=== PATIENT | male | born 1955 | race Caucasian/White ===

== ENCOUNTER 2016-10-11 04:40 | Inpatient (IN) ==
[2016-10-06 17:23] LABS: Basophils # (Auto) 0 K/mcL (0.0-0.3); Basophils % (Auto) 0.5 % (0.0-2.0); Eosinophils # (Auto) 0.2 K/mcL (0.0-0.7); Granulocytes % (Auto) 66.4 % (38.0-78.0); Lymphocytes # (Auto) 2.1 K/mcL (1.5-4.8); Lymphocytes % (Auto) 22.8 % (15.5-49.0); Mean Corpuscular Hemoglobin 33.6 pg (26.0-34.0); Monocytes # (Auto) 0.8 K/mcL (0.1-0.9); Monocytes % (Auto) 8.3 % (1.0-9.0); Platelet Count 254 K/mcL (140-440); RBC 4.29 M/mcL (4.50-5.90); Red Cell Distribution Width 12.7 % (11.5-14.5)
[2016-10-06 17:31] LABS: Blood Urea Nitrogen 21 mg/dl (6-20)
[2016-10-06 18:46] LABS: Appearance,Urine CLEAR; Bilirubin,Urine NEG (NEG); Color,Urine YELLOW; Glucose,Urine (UA) NEGATIVE (NEG); Leukocyte Esterase,Urine NEG /uL (NEG); Nitrate,Urine NEG (NEG); Protein,Urine NEG (NEG); Specific Gravity,Urine 1.018 (1.000-1.035); Urine Blood NEG mg/dL (<0.03); Urobilinogen,Urine NEG (NEG)
[2016-10-11] MEDS ORDERED: PREGABALIN 150 MG CAPSULE PO SCH (06:00)
[2016-10-11] MEDS ORDERED: CLINDAMYCIN 900 MG in DEXTROSE 5% IN WATER 50 ML IV SCH (06:00)
[2016-10-11] MEDS ORDERED: oxyCODONE 10 MG TAB.ER.12H PO SCH (06:00)
[2016-10-11] MEDS ORDERED: KETOROLAC 30 MG, ROPIVACAINE HCL/PF 49.5 ML, EPINEPHrine 0.5 MG, 0.9 % SODIUM CHLORIDE ... IJ ONE (06:00)
[2016-10-11] MEDS ORDERED: CELECOXIB 200 MG CAPSULE PO SCH (06:00)
[2016-10-11] MEDS ORDERED: GENTAMICIN SULFATE 800 MG/20 ML VIAL IR ONE (06:51)
[2016-10-11] MEDS ORDERED: MIDAZOLAM 5 MG/5 ML VIAL ONE (07:23)
[2016-10-11] MEDS ORDERED: PHENYLEPHRINE 10 MG/ML VIAL ONE (07:23)
[2016-10-11] MEDS ORDERED: ePHEDrine 50 MG/ML AMPUL IV ONE (07:23)
[2016-10-11] MEDS ORDERED: ONDANSETRON 4 MG/2 ML VIAL ONE (07:23)
[2016-10-11] MEDS ORDERED: DEXAMETHASONE 10 MG/ML VIAL ONE (07:23)
[2016-10-11] MEDS ORDERED: PROPOFOL 200 MG/20 ML VIAL IV ONE (07:23)
[2016-10-11] MEDS ORDERED: GLYCOPYRROLATE 0.2 MG/ML VIAL IV ONE (07:23)
[2016-10-11] MEDS ORDERED: LIDOCAINE HCL/PF 100 MG/5 ML SYRINGE IV ONE (07:23)
[2016-10-11] MEDS ORDERED: MEPERIDINE 25 MG/ML SYRINGE IV PRN (08:35)
[2016-10-11] MEDS ORDERED: PROMETHAZINE 25 MG/ML VIAL IV PRN (08:35)
[2016-10-11] MEDS ORDERED: HYDROmorphone 2 MG/ML SYRINGE IV PRN ×2 (08:35→10:36)
[2016-10-11] MEDS ORDERED: IPRATROPIUM/ALBUTEROL 3 ML AMPUL.NEB NEB PRN (08:35)
[2016-10-11] MEDS ORDERED: NALOXONE HCL 0.4 MG/ML VIAL IV PRN (08:35)
[2016-10-11] MEDS ORDERED: METOPROLOL TARTRATE 5 MG/5 ML VIAL IV PRN (08:35)
[2016-10-11] MEDS ORDERED: METHOCARBAMOL 1,000 MG/10 ML VIAL IV PRN (08:35)
[2016-10-11] MEDS ORDERED: FLUMAZENIL 0.1 MG/ML ML IV PRN (08:35)
[2016-10-11] MEDS ORDERED: fentaNYL 100 MCG/2 ML VIAL IV PRN (08:35)
[2016-10-11] MEDS ORDERED: BENZOCAINE/MENTHOL 1 LOZENGE PO PRN ×2 (08:35→10:36)
[2016-10-11] MEDS ORDERED: diphenhydrAMINE 50 MG/ML VIAL IV PRN (08:35)
[2016-10-11] MEDS ORDERED: ATROPINE SULFATE 0.4 MG/ML VIAL IV PRN (08:35)
[2016-10-11] MEDS ORDERED: ONDANSETRON 4 MG/2 ML VIAL IV PRN ×2 (08:35→10:36)
[2016-10-11] MEDS ORDERED: ePHEDrine 50 MG/ML AMPUL IV PRN (08:35)
[2016-10-11] MEDS ORDERED: LACTATED RINGERS 1,000 ML IV SCH (08:45)
--- NOTE | 2016-10-11 09:02 | Brief Operative Note ---
Date of procedure: 10/11/16 Pre-op diagnosis: right knee oa Post-op diagnosis: same Procedure: right total knee arthroplasty Grafts/Implants: Yes Anesthesia: spinal Complications: none Surgeon: Dhiraj Martin [employer] And Safety Instructor: Ted Chaudhary Estimated blood loss (cc): 100 Tourniquet Time (Minutes): 62 Specimens Removed/Pathology: none sent Condition: stable Disposition: PACU
[2016-10-11] MEDS ORDERED: TRANEXAMIC ACID 1,000 MG/10 ML VIAL IV SCH (09:03)
[2016-10-11] MEDS ORDERED: ceFAZolin 1 GM VIAL IV SCH (09:15)
--- NOTE | 2016-10-11 10:00 | XRay Report ---
CLINICAL INFORMATION: Postop total knee prostheses COMPARISON: None. FINDINGS: Total knee prostheses is anatomically aligned. There are no osseous abnormalities. Periarticular gas and soft tissue swelling seen as expected. IMPRESSION: Negative Interpreted and Authenticated by: Dhiraj Bourne 10/11/16
[2016-10-11] MEDS ORDERED: MAGNESIUM HYDROXIDE 30 ML ORAL.SUSP PO PRN (10:36)
[2016-10-11] MEDS ORDERED: BISACODYL 10 MG SUPP.RECT PR PRN (10:36)
[2016-10-11] MEDS ORDERED: FLEETS ADULT ENEMA PR PRN (10:36)
[2016-10-11] MEDS ORDERED: POLYETHYLENE GLYCOL 3350 17 GM PACKET PO PRN (10:36)
[2016-10-11] MEDS: 0.9 % SODIUM CHLORIDE 1,000 ML IV SCH ×2 (10:40→20:41)
--- NOTE | 2016-10-11 10:52 | Operative Note ---
DATE OF OPERATION: 10/11/2016 PREOPERATIVE DIAGNOSIS: Degenerative joint disease, right knee. POSTOPERATIVE DIAGNOSIS: Degenerative joint disease, right knee. PROCEDURE: Right total knee arthroplasty. SURGEON: Elsy Martin M.D. CENTRAL OFFICE MECHANIC SURGEON: Ted Chaudhary PA-C ANESTHESIA: Spinal with LMA assist. ESTIMATED BLOOD LOSS: 100 mL COMPLICATIONS: None noted. SPECIMENS REMOVED: None DRAINS: None. TOURNIQUET TIME: 62 minutes at 300 mmHg. IMPLANTS: Depuy CMW2 bone cement 20 grams x4, Depuy Attune femoral posterior stabilized size 6 right cemented, Depuy Attune tibial based fixed bearing size 6 cemented, Depuy Attune tibial insert fixed bearing posterior stabilized size 6, 6 mm AOX, Depuy Attune patella medialized dome, 38 mm cemented AOX. INDICATIONS: The patient has had a long-standing history of worsening pain in the knee that has failed conservative treatment. Radiographs have confirmed advanced degenerative joint disease. After a long discussion about treatment options, the patient elected to proceed with a knee arthroplasty. The risks and benefits were discussed with the patient in detail including, but not limited to, the risks of anesthesia, problems with the heart or lungs related to anesthesia, infection, compromise or injury to the nerves and blood vessels, deep venous thrombosis, pulmonary embolism, pneumonia, continued pain after surgery, worsening pain or symptoms after surgery, swelling, loss of motion, instability, leg length discrepancy, and need for repeat surgery. DESCRIPTION OF PROCEDURE: The patient was seen in the pre-anesthesia waiting room where all questions were answered and the correct side and site were identified and marked. The patient was transferred to the operating room and administered the anesthetic and given pre-operative antibiotics. A time-out was then called. The extremity was prepped and draped, exsanguinated, and the tourniquet was inflated to 300 mmHg. A midline skin incision was then made with a standard medial parapatellar arthrotomy. Debridement of the menisci, ACL, and PCL was performed followed by balancing releases in the medial lateral plane. We then established intramedullary access to both the femur and tibia in a standard fashion. The femoral guide alberto was initially placed with the distal femoral guide, pinned into place, and the distal femoral cut was performed and checked with a flat plate. We then turned our attention to the tibia. The intramedullary guide was placed with the proximal tibial cutting block. The block was appropriately positioned off the affected side, varus and valgus was checked with the extra-medullary guide, and the block was pinned into place. The proximal tibial cut was performed and the tibia was prepared for the tibial implant with appropriate rotation. The tibia, femur, and posterior compartment were debrided of osteophytes, loose bodies, and meniscal fragments We then used the gap balancing technique to balance extension with the first two cuts and good balancing was obtained with a 10 millimeter gap block. We turned our attention back to the femur and used the referencing block and implant to size appropriately. Using the gap balancing technique for the flexion space we set our rotation of the femur off the tibial cut. Anesthesia gave the patient 1 gram of Tranexamic Acid via an intravenous route. We placed the 4 in 1 cutting block and made anterior, posterior, and chamfer cuts. Box plasty cuts were then made in a standard fashion for the posterior stabilized prosthesis. We then completed osteophyte release and posterior capsule release from the posterior compartment. Trials were placed and we chose the polyethylene insert thickness that provided the best stability in all planes. With the trials in place, we did a measured resection for a resurfacing patella. We sized the patella and placed the patella trial and performed a lateral facetectomy with the saw and rongeur. Good tracking was obtained. We removed all trials, irrigated and dried all cut surfaces. We cemented the components into place including tibia, femur and patella. We placed a trial liner and held the knee in full extension with the patella compressed while the cement cured. We then removed all excess cement and placed the final polyethylene tibiofemoral component. Irrigation with 3 liters of antibiotic saline was then performed using jet-lavage. We let the tourniquet down and coagulated bleeding vessels. We injected a 100 cubic centimeter volume including Ropivacaine 49.25 cubic centimeters at 5 milligrams per cubic centimeter, Ketorolac 30 milligrams, and Epinephrine 0.5 milligrams into 100 cubic centimeters volume of normal saline. We placed a deep drain and closed the retinaculum with looped #0 Maxon. We closed the subcutaneous tissue and skin in layers out to delfino in the skin. A sterile pressure dressing was applied. All needle and sponge counts were correct. The patient was transferred to the recovery room in stable condition. JOANNE:[email or web address] Job ID: [id number] Doc ID: [id number] Elsy Martin MD
[2016-10-11] MEDS: KETOROLAC 30 MG/ML VIAL IV SCH ×3 (11:46→23:32)
[2016-10-11] MEDS: HYDROcodone/APAP 10/325MG TABLET PO PRN ×4 (13:42→22:11)
[2016-10-11] MEDS: 0.9 % SODIUM CHLORIDE 10 ML SYRINGE IV SCH ×2 (13:43→20:42)
[2016-10-11] MEDS: CLINDAMYCIN 900 MG in DEXTROSE 5% IN WATER 50 ML IV SCH ×2 (14:46→22:12)
[2016-10-11] MEDS: FERROUS SULFATE 325 MG TABLET PO SCH (17:30)
[2016-10-11] MEDS: SENNOSIDES 1 TABLET PO SCH (20:41)
[2016-10-11] MEDS: DOCUSATE SODIUM 100 MG CAPSULE PO SCH (20:41)
[2016-10-11] MEDS: ASPIRIN 325 MG ENTERIC COATED TABLET PO SCH (20:41)
[2016-10-11] MEDS: METHOCARBAMOL 750 MG TABLET PO PRN (20:42)
[2016-10-12] MEDS: HYDROcodone/APAP 10/325MG TABLET PO PRN ×6 (02:11→22:54)
[2016-10-12] MEDS: 0.9 % SODIUM CHLORIDE 1,000 ML IV SCH ×3 (02:12→20:09)
[2016-10-12] MEDS: 0.9 % SODIUM CHLORIDE 10 ML SYRINGE IV SCH ×3 (05:54→23:43)
[2016-10-12] MEDS: KETOROLAC 30 MG/ML VIAL IV SCH ×4 (05:54→23:43)
--- NOTE | 2016-10-12 07:09 | Orthopedic Progress Note ---
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 Chief Complaint: [] Principal diagnosis: right total knee arthroplasty Interval history: Doing well today without complaint. Pain is controlled. Worried about going home today as his is legally blind and has no help. Objective Vital signs: Vital Signs Temp Pulse Pulse Resp BP Pulse Ox 10/12/16 04:00 97.9 F 89 20 122/75 94 10/11/16 23:48 97.5 F L 81 20 131/78 93 10/11/16 20:00 97.3 F L 92 H 20 121/76 94 10/11/16 16:00 97.5 F L 82 130/79 95 10/11/16 15:37 98 10/11/16 15:36 83 16 98 10/11/16 14:10 84 95 10/11/16 12:15 100 H 123/64 96 10/11/16 11:45 86 154/80 97 10/11/16 11:15 74 125/79 92 10/11/16 11:00 79 128/68 93 10/11/16 10:45 97.9 F 75 145/82 94 10/11/16 10:30 96.9 F L 75 18 144/79 94 10/11/16 10:20 97.7 F 76 18 132/64 95 10/11/16 10:05 80 15 130/65 95 10/11/16 09:50 84 18 135/59 95 10/11/16 09:35 85 18 127/57 96 10/11/16 09:21 97.5 F L 107 H 21 126/57 95 Intake and Output 10/11/16 10/12/16 10/12/16 21:59 05:59 13:59 Intake Total 2096 / 2096 1100 / 1100 Output Total 460 / 460 400 / 400 Balance 1636 / 1636 700 / 700 Intake: IV 1056 / 1056 Sodium Chloride 0.9% 1, 1000 / 1000 000 ml @ 125 mls/hr IV . Q8H [facility] Rx#:[id number] Dextrose 5% in Water 50 56 / 56 ml @ 100 mls/hr IV Q8H [facility] with Cleocin 900 mg Rx#:[id number] Oral 1040 / 1040 1100 / 1100 Output: Void Amount 460 / 460 400 / 400 Other: Meal Lunch Percent of Meal Consumed 80 Feeding Ability Independent Weight 237 lb 8 oz Intake & Output: Intake & Output 10/11/16 10/12/16 10/12/16 21:59 05:59 13:59 Intake Total 2096 / 2096 1100 / 1100 Output Total 460 / 460 400 / 400 Balance 1636 / 1636 700 / 700 Weight 237 lb 8 oz Intake: IV 1056 / 1056 Sodium Chloride 0.9% 1, 1000 / 1000 000 ml @ 125 mls/hr IV . Q8H [facility] Rx#:[id number] Dextrose 5% in Water 50 56 / 56 ml @ 100 mls/hr IV Q8H [facility] with Cleocin 900 mg Rx#:[id number] Oral 1040 / 1040 1100 / 1100 Output: Void Amount 460 / 460 400 / 400 Other: Meal Lunch Percent of Meal Consumed 80 Feeding Ability Independent Incision: Yes clean and dry Dressing: Yes clean, Yes dry, Yes intact Weight bearing status: as tolerated Neurological exam IM: Yes alert, Yes oriented X3, Yes motor sensory intact, Yes neurovascular intact Extremities exam IM: Yes Foot pink and warm, Yes neurovascular intact - Periperhal Pulses Peripheral pulses: 2+: dorsalis pedis (L), dorsalis pedis (R), posterior tibialis (L), posterior tibialis (R) - Labs CBC & BMP: 10/12/16 03:50 10/06/16 15:17 Labs: Orthopedic Labs 10/06/16 15:17 PT 13.6 INR 1.0 10/12/16 10/06/16 03:50 15:17 Hgb 11.0 L 14.4 Hct 32.5 L 42.5 Assessment and Plan (1) S/P total knee arthroplasty PO day 1 s/p right total knee arthroplasty -wbat -pain control -dvt prophylaxis -mobilize with PT -social group worker consult to set up home health -d/c planning for tomorrow Status: Acute Qualifiers: Laterality: right Qualified Code(s): Z96.651 - Presence of right artificial knee joint
[2016-10-12] MEDS: FERROUS SULFATE 325 MG TABLET PO SCH ×2 (08:09→17:13)
[2016-10-12] MEDS: DOCUSATE SODIUM 100 MG CAPSULE PO SCH ×2 (08:44→20:36)
[2016-10-12] MEDS: MULTIVIT,THER IRON,CA,FA & MIN 1 TABLET PO SCH (08:44)
[2016-10-12] MEDS: LOSARTAN 50 MG TABLET PO SCH (08:44)
[2016-10-12] MEDS: HYDROCHLOROTHIAZIDE 12.5 MG CAPSULE PO SCH (08:44)
[2016-10-12] MEDS: ASPIRIN 325 MG ENTERIC COATED TABLET PO SCH ×2 (08:44→20:36)
[2016-10-12] MEDS: SENNOSIDES 1 TABLET PO SCH (20:36)
[2016-10-13] MEDS: HYDROcodone/APAP 10/325MG TABLET PO PRN ×2 (03:30→07:11)
[2016-10-13] MEDS: 0.9 % SODIUM CHLORIDE 1,000 ML IV SCH ×2 (03:57→09:22)
[2016-10-13] MEDS: KETOROLAC 30 MG/ML VIAL IV SCH (05:36)
[2016-10-13] MEDS: 0.9 % SODIUM CHLORIDE 10 ML SYRINGE IV SCH (05:36)
--- NOTE | 2016-10-13 06:59 | Orthopedic Progress Note ---
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 Chief Complaint: [] Principal diagnosis: right total knee arthroplasty Interval history: doing well pain controlled Objective Vital signs: Vital Signs Temp Pulse Resp BP Pulse Ox 10/13/16 04:00 97.5 F L 77 16 103/62 95 10/13/16 00:00 97.3 F L 83 16 111/54 96 10/12/16 20:00 98.2 F 82 16 123/75 96 10/12/16 16:00 97.1 F L 79 20 108/69 96 10/12/16 12:00 98.6 F 75 20 121/79 94 10/12/16 07:43 97 10/12/16 07:42 98.4 F 74 20 124/76 94 Intake and Output 10/12/16 10/13/16 10/13/16 21:59 05:59 13:59 Intake Total 1040 / 1040 650 / 650 Output Total 300 / 300 Balance 740 / 740 650 / 650 Intake: Oral 1040 / 1040 650 / 650 Output: Void Amount 300 / 300 Other: Meal Lunch Percent of Meal Consumed 100% # Voids 3 Weight 238 lb Intake & Output: Intake & Output 10/12/16 10/13/16 10/13/16 21:59 05:59 13:59 Intake Total 1040 / 1040 650 / 650 Output Total 300 / 300 Balance 740 / 740 650 / 650 Weight 238 lb Intake: Oral 1040 / 1040 650 / 650 Output: Void Amount 300 / 300 Other: Meal Lunch Percent of Meal Consumed 100% # Voids 3 Incision: Yes healing, Yes clean and dry Incision clean and dry: Yes Dressing: Yes clean, Yes dry, Yes intact Weight bearing status: full Neurological exam IM: Yes alert, Yes normal gait, Yes oriented X3, Yes motor sensory intact, Yes neurovascular intact Extremities exam IM: Yes Foot pink and warm, Yes neurovascular intact - Labs CBC & BMP: 10/13/16 03:35 10/06/16 15:17 Labs: Orthopedic Labs 10/06/16 15:17 PT 13.6 INR 1.0 10/13/16 10/12/1616 03:35 03:50 15:17 Hgb 9.9 L 11.0 L 14.4 Hct 29.2 L 32.5 L 42.5 Assessment and Plan (1) S/P total knee arthroplasty pod 2 s/p tka wbat pain control dvt prophylaxis d/c planning - home today with home health Status: Acute Qualifiers: Laterality: right Qualified Code(s): Z96.651 - Presence of right artificial knee joint
--- NOTE | 2016-10-13 07:00 | Discharge Summary ---
Ortho Discharge - TKA - Patient Instructions Diet: Regular Diet Activity: activity as tolerated, ambulate with assistive device, weight bearing as tolerated Total Knee Protocol: For Total Knee: Start ROM KAREL with stationary bike or rocking chair. Work on gaining full extension of knee. Posterior dislocation precautions provided. Hip abductor strengthening and gait training instructions provided. Apply Cryocuff as instructed. Dressing Care: May shower in 2 days Patient Education: Total Knee Replacement (DC) - Problem Maintenance (1) S/P total knee arthroplasty Status: Acute Qualifiers: Laterality: right Qualified Code(s): Z96.651 - Presence of right artificial knee joint - Follow Up Plan Follow Up Appointments: Dhiraj Martin MD [Physician] - 10/26/16 11:20 am Disposition: Home Health Service Prognosis: Good Rehab Potential: Good I certify that the patient requires SNF services: No Overall status at discharge: patient is progressing back to baseline
[2016-10-13] MEDS: METHOCARBAMOL 750 MG TABLET PO PRN (07:11)
[2016-10-13] MEDS: LOSARTAN 50 MG TABLET PO SCH (09:21)
[2016-10-13] MEDS: HYDROCHLOROTHIAZIDE 12.5 MG CAPSULE PO SCH (09:21)
[2016-10-13] MEDS: DOCUSATE SODIUM 100 MG CAPSULE PO SCH (10:11)
[2016-10-13] MEDS: FERROUS SULFATE 325 MG TABLET PO SCH (10:11)
[2016-10-13] MEDS: MULTIVIT,THER IRON,CA,FA & MIN 1 TABLET PO SCH (10:11)
[2016-10-13] MEDS: ASPIRIN 325 MG ENTERIC COATED TABLET PO SCH (10:11)
== END 2016-10-13 10:33 | disposition home health service (06) | DRG 470 ==
LOC: MEDSUR 04:40
PROVIDERS: ADMIT Orthopaedic Surgery Sports Medicine; ATTEND Orthopaedic Surgery Sports Medicine

== ENCOUNTER 2017-03-07 05:36 | Inpatient (IN) ==
[2017-03-02 17:15] LABS: Appearance,Urine CLEAR; Bilirubin,Urine NEG (NEG); Color,Urine STRAW; Glucose,Urine (UA) NEGATIVE (NEG); Leukocyte Esterase,Urine NEG /uL (NEG); Nitrate,Urine NEG (NEG); Protein,Urine NEG (NEG); Specific Gravity,Urine 1.005 (1.000-1.035); Urine Blood NEG mg/dL (<0.03); Urobilinogen,Urine NEG (NEG)
[2017-03-02 17:47] LABS: Basophils # (Auto) 0.1 K/mcL (0.0-0.3); Basophils % (Auto) 0.6 % (0.0-2.0); Eosinophils # (Auto) 0.3 K/mcL (0.0-0.7); Eosinophils % (Auto) 2.3 % (0.0-7.0); Granulocytes % (Auto) 62.3 % (38.0-78.0); Lymphocytes # (Auto) 3.3 K/mcL (1.5-4.8); Lymphocytes % (Auto) 27.7 % (15.5-49.0); Mean Corpuscular HGB Conc 34.7 g/dL (31.0-36.0); Mean Corpuscular Hemoglobin 32.6 pg (26.0-34.0); Monocytes # (Auto) 0.9 K/mcL (0.1-0.9); Monocytes % (Auto) 7.1 % (1.0-12.0); Platelet Count 246 K/mcL (140-440); RBC 4.49 M/mcL (4.50-5.90); Red Cell Distribution Width 15.6 % (11.5-14.5)
[2017-03-02 17:55] LABS: Blood Urea Nitrogen 19 mg/dl (6-20)
[~2017-03-07 05:36] MED LIST: CELECOXIB 200 MG CAPSULE PO SCH; PREGABALIN 75 MG CAPSULE PO SCH; oxyCODONE 10 MG TAB.ER.12H PO SCH
[2017-03-07] MEDS ORDERED: KETOROLAC 30 MG, ROPIVACAINE HCL/PF 49.5 ML, EPINEPHrine 0.5 MG, 0.9 % SODIUM CHLORIDE ... IJ SCH (06:30)
[2017-03-07] MEDS ORDERED: CLINDAMYCIN 900 MG in DEXTROSE 5% IN WATER 50 ML IV SCH (06:30)
[2017-03-07] MEDS ORDERED: DEXAMETHASONE 10 MG/ML VIAL IV ONE (08:20)
[2017-03-07] MEDS ORDERED: LIDOCAINE HCL/PF 100 MG/5 ML SYRINGE IV ONE (08:20)
[2017-03-07] MEDS ORDERED: PHENYLEPHRINE 10 MG/ML VIAL IV ONE (08:20)
[2017-03-07] MEDS ORDERED: ROPIVACAINE HCL/PF 30 ML VIAL IJ ONE (08:20)
[2017-03-07] MEDS ORDERED: TRANEXAMIC ACID 1,000 MG/10 ML VIAL IV ONE (08:20)
[2017-03-07] MEDS ORDERED: MIDAZOLAM 5 MG/5 ML VIAL IV ONE (08:20)
[2017-03-07] MEDS ORDERED: ePHEDrine 50 MG/ML AMPUL IV ONE (08:20)
[2017-03-07] MEDS ORDERED: PROPOFOL 200 MG/20 ML VIAL IV ONE (08:20)
[2017-03-07] MEDS ORDERED: ONDANSETRON 4 MG/2 ML VIAL IV ONE (08:20)
[2017-03-07] MEDS ORDERED: GENTAMICIN SULFATE 800 MG/20 ML VIAL IR ONE (08:59)
[2017-03-07] MEDS ORDERED: fentaNYL 100 MCG/2 ML VIAL IV PRN (09:39)
[2017-03-07] MEDS ORDERED: LACTATED RINGERS 250 ML IV PRN (09:39)
[2017-03-07] MEDS ORDERED: IPRATROPIUM/ALBUTEROL 3 ML AMPUL.NEB NEB PRN (09:39)
[2017-03-07] MEDS ORDERED: NALOXONE HCL 0.4 MG/ML VIAL IV PRN (09:39)
[2017-03-07] MEDS ORDERED: ePHEDrine 50 MG/ML AMPUL IV PRN (09:39)
[2017-03-07] MEDS ORDERED: METOCLOPRAMIDE 10 MG/2 ML VIAL IV PRN (09:39)
[2017-03-07] MEDS ORDERED: MEPERIDINE 25 MG/ML SYRINGE IV PRN (09:39)
[2017-03-07] MEDS ORDERED: HYDROmorphone 2 MG/ML SYRINGE IV PRN (09:39)
[2017-03-07] MEDS ORDERED: ONDANSETRON 4 MG/2 ML VIAL IV PRN ×2 (09:39→09:57)
[2017-03-07] MEDS ORDERED: MEPERIDINE 50 MG/ML SYRINGE IM PRN (09:39)
[2017-03-07] MEDS ORDERED: PROMETHAZINE 25 MG/ML VIAL IV PRN (09:39)
[2017-03-07] MEDS ORDERED: PROMETHAZINE 25 MG/ML VIAL IM PRN ×2 (09:39→09:57)
[2017-03-07] MEDS ORDERED: BENZOCAINE/MENTHOL 1 LOZENGE PO PRN ×2 (09:39→09:57)
[2017-03-07] MEDS ORDERED: FLUMAZENIL 0.1 MG/ML ML IV PRN (09:39)
[2017-03-07] MEDS ORDERED: diphenhydrAMINE 50 MG/ML VIAL IV PRN (09:39)
[2017-03-07] MEDS ORDERED: LACTATED RINGERS 1,000 ML IV SCH (09:45)
[2017-03-07] MEDS ORDERED: ONDANSETRON ODT 4 MG TABLET SL PRN (09:57)
[2017-03-07] MEDS ORDERED: POLYETHYLENE GLYCOL 3350 17 GM PACKET PO PRN (09:57)
[2017-03-07] MEDS ORDERED: DOCUSATE SODIUM 100 MG CAPSULE PO PRN (09:57)
[2017-03-07] MEDS ORDERED: FLEETS ADULT ENEMA PR PRN (09:57)
[2017-03-07] MEDS ORDERED: TRANEXAMIC ACID 1,000 MG/10 ML VIAL IV SCH (09:57)
[2017-03-07] MEDS ORDERED: BISACODYL 10 MG SUPP.RECT PR PRN (09:57)
[2017-03-07] MEDS ORDERED: MAGNESIUM HYDROXIDE 30 ML ORAL.SUSP PO PRN (09:57)
--- NOTE | 2017-03-07 09:57 | Brief Operative Note ---
Date of procedure: 03/07/17 Pre-op diagnosis: left knee oa Post-op diagnosis: same Procedure: left total knee arthroplasty Grafts/Implants: Yes Anesthesia: spinal Complications: none Surgeon: Dhiraj Martin Political Science Chair: Anam Brar Estimated blood loss (cc): 100 Tourniquet Time (Minutes): 56 Specimens Removed/Pathology: none sent Condition: stable Disposition: PACU
[2017-03-07] MEDS ORDERED: ceFAZolin 1 GM VIAL IV SCH (10:00)
--- NOTE | 2017-03-07 11:01 | XRay Report ---
HISTORY: Reason for Exam:Post-Op Total Knee FINDINGS: There is a well positioned total knee prosthesis. No fracture or abnormal soft tissue calcification are present. IMPRESSION: Well-positioned left knee prosthesis Interpreted and Authenticated by: Mckay Rodriguez 03/07/17
--- NOTE | 2017-03-07 11:30 | Operative Note ---
DATE OF OPERATION: 03/07/2017 PREOPERATIVE DIAGNOSIS: Degenerative joint disease, left knee. POSTOPERATIVE DIAGNOSIS: Degenerative joint disease, left knee. PROCEDURE: Left total knee arthroplasty. SURGEON: Elsy Martin M.D. DASHBOARD DEVELOPER SURGEON: Anam Brar PA-C. ANESTHESIA: Spinal with LMA assist. ESTIMATED BLOOD LOSS: 100 mL. COMPLICATIONS: None noted. SPECIMENS REMOVED: None. DRAINS: None. TOURNIQUET TIME: 56 minutes at 300 mmHg. IMPLANTS: DePuy CMW2 bone cement x4; DePuy Attune femoral posterior stabilized size 7 cemented; DePuy Attune tibial insert fixed bearing posterior stabilized size 7, 7 mm AOX; DePuy Attune tibial base fixed bearing size 6 cemented; DePuy Attune patella medialized dome 38 mm cemented AOX. INDICATIONS: The patient has had a long-standing history of worsening pain in the knee that has failed conservative treatment. Radiographs have confirmed advanced degenerative joint disease. After a long discussion about treatment options, the patient elected to proceed with a knee arthroplasty. The risks and benefits were discussed with the patient in detail including, but not limited to, the risks of anesthesia, problems with the heart or lungs related to anesthesia, infection, compromise or injury to the nerves and blood vessels, deep venous thrombosis, pulmonary embolism, pneumonia, continued pain after surgery, worsening pain or symptoms after surgery, swelling, loss of motion, instability, leg length discrepancy, and need for repeat surgery. DESCRIPTION OF PROCEDURE: The patient was seen in the pre-anesthesia waiting room where all questions were answered and the correct side and site were identified and marked. The patient was transferred to the operating room and administered the anesthetic and given pre-operative antibiotics. A time-out was then called. The extremity was prepped and draped, exsanguinated, and the tourniquet was inflated to 300 mmHg. A midline skin incision was then made with a standard medial parapatellar arthrotomy. Debridement of the menisci, ACL, and PCL was performed followed by balancing releases in the medial lateral plane. We then established intramedullary access to both the femur and tibia in a standard fashion. The femoral guide alberto was initially placed with the distal femoral guide, pinned into place, and the distal femoral cut was performed and checked with a flat plate. We then turned our attention to the tibia. The intramedullary guide was placed with the proximal tibial cutting block. The block was appropriately positioned off the affected side, varus and valgus was checked with the extra-medullary guide, and the block was pinned into place. The proximal tibial cut was performed and the tibia was prepared for the tibial implant with appropriate rotation. The tibia, femur, and posterior compartment were debrided of osteophytes, loose bodies, and meniscal fragments We then used the gap balancing technique to balance extension with the first two cuts and good balancing was obtained with a 10 millimeter gap block. We turned our attention back to the femur and used the referencing block and implant to size appropriately. Using the gap balancing technique for the flexion space we set our rotation of the femur off the tibial cut. Anesthesia gave the patient 1 gram of Tranexamic Acid via an intravenous route. We placed the 4 in 1 cutting block and made anterior, posterior, and chamfer cuts. Box plasty cuts were then made in a standard fashion for the posterior stabilized prosthesis. We then completed osteophyte release and posterior capsule release from the posterior compartment. Trials were placed and we chose the polyethylene insert thickness that provided the best stability in all planes. With the trials in place, we did a measured resection for a resurfacing patella. We sized the patella and placed the patella trial and performed a lateral facetectomy with the saw and rongeur. Good tracking was obtained. We removed all trials, irrigated and dried all cut surfaces. We cemented the components into place including tibia, femur and patella. We placed a trial liner and held the knee in full extension with the patella compressed while the cement cured. We then removed all excess cement and placed the final polyethylene tibiofemoral component. Irrigation with 3 liters of antibiotic saline was then performed using jet-lavage. We let the tourniquet down and coagulated bleeding vessels. We injected a 100 cubic centimeter volume including Ropivacaine 49.25 cubic centimeters at 5 milligrams per cubic centimeter, Ketorolac 30 milligrams, and Epinephrine 0.5 milligrams into 100 cubic centimeters volume of normal saline. We placed a deep drain and closed the retinaculum with looped #0 Maxon. We closed the subcutaneous tissue and skin in layers out to delfino in the skin. A sterile pressure dressing was applied. All needle and sponge counts were correct. The patient was transferred to the recovery room in stable condition. JOANNE:beatriz Job ID: [id number] Doc ID: [id number] Elsy Martin MD
[2017-03-07] MEDS: 0.9 % SODIUM CHLORIDE 1,000 ML IV SCH ×3 (11:55→20:39)
[2017-03-07] MEDS: KETOROLAC 15 MG/ML VIAL IV SCH ×3 (11:55→23:22)
[2017-03-07] MEDS: HYDROcodone/APAP 10/325MG TABLET PO PRN ×2 (12:52→17:41)
[2017-03-07] MEDS: 0.9 % SODIUM CHLORIDE 10 ML SYRINGE IV SCH ×2 (12:57→20:43)
[2017-03-07] MEDS: HYDROmorphone 2 MG/ML SYRINGE IV PRN ×2 (16:20→20:40)
[2017-03-07] MEDS: CLINDAMYCIN 900 MG in DEXTROSE 5% IN WATER 50 ML IV SCH ×2 (16:28→23:26)
[2017-03-07] MEDS: FERROUS SULFATE 325 MG TABLET PO SCH (17:41)
[2017-03-07] MEDS: DOCUSATE SODIUM 100 MG CAPSULE PO SCH (20:40)
[2017-03-07] MEDS: ASPIRIN 325 MG ENTERIC COATED TABLET PO SCH (20:40)
[2017-03-07] MEDS: SENNOSIDES 1 TABLET PO SCH (20:40)
[2017-03-08] MEDS: HYDROcodone/APAP 10/325MG TABLET PO PRN ×5 (01:33→21:08)
[2017-03-08] MEDS: 0.9 % SODIUM CHLORIDE 1,000 ML IV SCH ×3 (04:29→17:05)
[2017-03-08] MEDS: KETOROLAC 15 MG/ML VIAL IV SCH ×4 (05:31→23:52)
[2017-03-08] MEDS: 0.9 % SODIUM CHLORIDE 10 ML SYRINGE IV SCH ×4 (05:32→23:53)
--- NOTE | 2017-03-08 06:32 | Orthopedic Progress Note ---
Subjective Patient information: Note initiated : 03/08/17 at 6:30 am Service Date, if different from initiated Date: [] Patient: Willi Santiago 61 y/o M admitted on 03/07/17 for Left Total Knee Arthroplasty. Chief Complaint: [] Interval history: doing well. some pain but getting up Objective Vital signs: Vital Signs Temp Pulse Resp BP BP Pulse Ox 03/08/17 04:00 97.4 F 83 18 124/76 95 03/07/17 23:14 95.1 F L 82 18 119/72 95 03/07/17 19:53 97.5 F 99 H 18 109/69 96 03/07/17 16:00 98.0 F 16 110/80 95 03/07/17 13:21 97.6 F 16 142/76 98 03/07/17 12:25 16 153/85 96 03/07/17 11:55 97.4 F 16 144/81 95 03/07/17 11:40 148/81 95 03/07/17 11:25 97.4 F 16 99 03/07/17 11:10 97.4 F 12 134/72 95 03/07/17 10:35 82 16 114/42 98 03/07/17 10:17 99.3 F H 88 12 120/67 98 Intake and Output 03/07/17 03/08/17 03/08/17 21:59 05:59 13:59 Intake Total 3456 / 3456 1736 / 1736 Output Total 625 / 625 525 / 525 Balance 2831 / 2831 1211 / 1211 Intake: IV 1056 / 1056 846 / 846 Sodium Chloride 0.9% 1, 1000 / 1000 846 / 846 000 ml @ 125 mls/hr IV . Q8H [facility] Rx#:[id number] Cleocin 900 mg In 56 / 56 Dextrose 5% in Water 50 ml @ 100 mls/hr IV Q8H [facility] Rx#:[id number] Oral 2400 / 2400 890 / 890 Output: Void Amount 625 / 625 525 / 525 Other: Meal Dinner Percent of Meal Consumed 100% Weight 249 lb 8 oz Intake & Output: Intake & Output 03/07/17 03/08/17 03/08/17 21:59 05:59 13:59 Intake Total 3456 / 3456 1736 / 1736 Output Total 625 / 625 525 / 525 Balance 2831 / 2831 1211 / 1211 Weight 249 lb 8 oz Intake: IV 1056 / 1056 846 / 846 Sodium Chloride 0.9% 1, 1000 / 1000 846 / 846 000 ml @ 125 mls/hr IV . Q8H [facility] Rx#:[id number] Cleocin 900 mg In 56 / 56 Dextrose 5% in Water 50 ml @ 100 mls/hr IV Q8H [facility] Rx#:[id number] Oral 2400 / 2400 890 / 890 Output: Void Amount 625 / 625 525 / 525 Other: Meal Dinner Percent of Meal Consumed 100% Incision: Yes healing Incision clean and dry: Yes Dressing: Yes clean, Yes dry, Yes intact Weight bearing status: full Neurological exam IM: Yes abnormal gait, Yes alert, Yes oriented X3, Yes motor sensory intact, Yes neurovascular intact Extremities exam IM: No calf tenderness, Yes Foot pink and warm, Yes neurovascular intact - Labs CBC & BMP: 03/08/17 04:43 03/02/17 15:00 Labs: Orthopedic Labs 03/02/17 15:00 PT 13.5 INR 1.0 03/08/17 03/02/17 04:43 15:01 Hgb 10.5 L 14.6 Hct 30.0 L 42.2 Assessment and Plan (1) S/P total knee arthroplasty pod 1 s/p tka wbat pain control dvt prophylaxis d/c planning Status: Acute Qualifiers:
--- NOTE | 2017-03-08 06:35 | Discharge Summary ---
Ortho Discharge - TKA - Patient Instructions Diet: Regular Diet Activity: activity as tolerated, weight bearing as tolerated Total Knee Protocol: For Total Knee: Start ROM KAREL with stationary bike or rocking chair. Work on gaining full extension of knee. Posterior dislocation precautions provided. Hip abductor strengthening and gait training instructions provided. Apply Cryocuff as instructed. Dressing Care: May shower in 2 days Patient Education: Total Knee Replacement (DC) Additional Instructions: Discharge Instructions: [facility] Physical Therapy [phone] APPOINTMENT: MondayMarch 14. Check in at 7:15 for a 7:30 appointment. Take your photo ID, insurance cards, and current medication list with you to your first physical therapy appointment. Your orders will be faxed to them. Take your prescription to order picker/assembler any medication or equipment (such as walker, crutches, toilet riser or C.P.M.) Wear comfortable clothing for your physical therapy. Weight bearing as tolerated. If you have the Aquacel Ag dressing, leave in place for 7 days then remove. If dressing becomes soiled (turns black), remove and use gauze 4x4 dressing and silvasorb ointment and change daily. Keep incision clean and dry. If you have Dermabond (a dressing with a mesh-like appearance), leave open to air. You may start showering on post op day #2. The Dermabond dressing can get wet, do not scrub dressing. Pat dry. To avoid constipation while taking any narcotic pain medication, take an over the counter stool softener/laxative. Use your Cryocuff or ice packs as directed, on for 20 minutes at a time throughout the day. This and elevation will help with pain and swelling. Call your physician for fevers above 100.5 or pain not controlled by medication. Your prescriptions are with your discharge information. Some medications were electronically transmitted to your pharmacy of choice. - Problem Maintenance (1) S/P total knee arthroplasty Status: Acute Qualifiers: - Follow Up Plan Follow Up Appointments: Dhiraj Martin MD [Physician] - 03/22/17 1:00 pm Disposition: Home, Self-Care Prognosis: Good Rehab Potential: Good I certify that the patient requires SNF services: No Overall status at discharge: patient is progressing back to baseline - Orders For Discharge Prescriptions: Aspirin [Ecotrin] 325 mg PO BID #60 Docusate Sodium [Colace] 100 mg PO BID #60 capsule HYDROcodone/APAP 10/325MG [Ransom 10/325Mg] 1 - 2 tab PO Q4HP PRN #60 tablet PRN Reason: Pain
--- NOTE | 2017-03-08 06:42 | Orthopedic Progress Note ---
Subjective Patient information: Note initiated : 03/08/17 at 6:42 am Service Date, if different from initiated Date: [] Patient: Willi Santiago 61 y/o M admitted on 03/07/17 for Left Total Knee Arthroplasty. Chief Complaint: [] Interval history: doing well pain under control Objective Vital signs: Vital Signs Temp Pulse Resp BP BP Pulse Ox 03/08/17 04:00 97.4 F 83 18 124/76 95 03/07/17 23:14 95.1 F L 82 18 119/72 95 03/07/17 19:53 97.5 F 99 H 18 109/69 96 03/07/17 16:00 98.0 F 16 110/80 95 03/07/17 13:21 97.6 F 16 142/76 98 03/07/17 12:25 16 153/85 96 03/07/17 11:55 97.4 F 16 144/81 95 03/07/17 11:40 148/81 95 03/07/17 11:25 97.4 F 16 99 03/07/17 11:10 97.4 F 12 134/72 95 03/07/17 10:35 82 16 114/42 98 03/07/17 10:17 99.3 F H 88 12 120/67 98 Intake and Output 03/07/17 03/08/17 03/08/17 21:59 05:59 13:59 Intake Total 3456 / 3456 1736 / 1736 Output Total 625 / 625 525 / 525 Balance 2831 / 2831 1211 / 1211 Intake: IV 1056 / 1056 846 / 846 Sodium Chloride 0.9% 1, 1000 / 1000 846 / 846 000 ml @ 125 mls/hr IV . Q8H KATHLE[facility] Rx#:[id number] Cleocin 900 mg In 56 / 56 Dextrose 5% in Water 50 ml @ 100 mls/hr IV Q8H KATHLEEN Rx#:[id number] Oral 2400 / 2400 890 / 890 Output: Void Amount 625 / 625 525 / 525 Other: Meal Dinner Percent of Meal Consumed 100% Weight 249 lb 8 oz Intake & Output: Intake & Output 03/07/17 03/08/17 03/08/17 21:59 05:59 13:59 Intake Total 3456 / 3456 1736 / 1736 Output Total 625 / 625 525 / 525 Balance 2831 / 2831 1211 / 1211 Weight 249 lb 8 oz Intake: IV 1056 / 1056 846 / 846 Sodium Chloride 0.9% 1, 1000 / 1000 846 / 846 000 ml @ 125 mls/hr IV . Q8H KATHLEEN Rx#:[id number] Cleocin 900 mg In 56 / 56 Dextrose 5% in Water 50 ml @ 100 mls/hr IV Q8H KATHLEEN Rx#:[id number] Oral 2400 / 2400 890 / 890 Output: Void Amount 625 / 625 525 / 525 Other: Meal Dinner Percent of Meal Consumed 100% Incision: Yes healing Incision clean and dry: Yes Dressing: Yes clean, Yes dry, Yes intact Weight bearing status: full Neurological exam IM: Yes alert, Yes normal gait, Yes oriented X3, Yes neurovascular intact Extremities exam IM: No calf tenderness, Yes Foot pink and warm, Yes neurovascular intact - Labs CBC & BMP: 03/08/17 04:43 03/02/17 15:00 Labs: Orthopedic Labs 03/02/17 15:00 PT 13.5 INR 1.0 03/08/17 03/02/17 04:43 15:01 Hgb 10.5 L 14.6 Hct 30.0 L 42.2 Assessment and Plan (1) S/P total knee arthroplasty pod 1 s/p tka wbat pain control dvt prophylaxis d/c planning Status: Acute Qualifiers:
[2017-03-08] MEDS: MULTIVIT,THER IRON,CA,FA & MIN 1 TABLET PO SCH (08:28)
[2017-03-08] MEDS: LOSARTAN 50 MG TABLET PO SCH (08:29)
[2017-03-08] MEDS: ASPIRIN 325 MG ENTERIC COATED TABLET PO SCH ×2 (08:29→21:08)
[2017-03-08] MEDS: DOCUSATE SODIUM 100 MG CAPSULE PO SCH ×2 (08:29→21:08)
[2017-03-08] MEDS: HYDROCHLOROTHIAZIDE 12.5 MG CAPSULE PO SCH (08:29)
[2017-03-08] MEDS: FERROUS SULFATE 325 MG TABLET PO SCH ×2 (08:29→17:05)
[2017-03-08] MEDS: SENNOSIDES 1 TABLET PO SCH (21:08)
[2017-03-09] MEDS: HYDROcodone/APAP 10/325MG TABLET PO PRN ×3 (01:12→09:29)
[2017-03-09] MEDS: 0.9 % SODIUM CHLORIDE 1,000 ML IV SCH (02:04)
[2017-03-09] MEDS: KETOROLAC 15 MG/ML VIAL IV SCH (05:29)
[2017-03-09] MEDS: 0.9 % SODIUM CHLORIDE 10 ML SYRINGE IV SCH (05:30)
--- NOTE | 2017-03-09 06:51 | Orthopedic Progress Note ---
Subjective Patient information: Note initiated : 03/09/17 at 6:50 am Service Date, if different from initiated Date: [] Patient: Willi Santiago 61 y/o M admitted on 03/07/17 for Left Total Knee Arthroplasty. Chief Complaint: [] Interval history: doing well. wants to go home Objective Vital signs: Vital Signs Temp Pulse Resp BP Pulse Ox 03/09/17 04:00 97.8 F 85 24 H 93/57 96 03/09/17 00:00 95.3 F L 93 H 24 H 132/71 99 03/08/17 20:00 98.0 F 93 H 24 H 97/52 97 03/08/17 17:07 96 03/08/17 16:00 97.6 F 92 H 18 91/57 97 03/08/17 11:57 97.4 F 18 123/66 96 03/08/17 07:14 97.3 F 18 122/66 94 03/08/17 07:10 97 Intake and Output 03/08/17 03/09/17 03/09/17 21:59 05:59 13:59 Intake Total 800 / 800 575 / 575 Output Total 475 / 475 575 / 575 Balance 325 / 325 0 / 0 Intake: Oral 800 / 800 575 / 575 Output: Void Amount 475 / 475 575 / 575 Other: Meal Lunch Percent of Meal Consumed 100% Weight 250 lb 8 oz Intake & Output: Intake & Output 03/08/17 03/09/17 03/09/17 21:59 05:59 13:59 Intake Total 800 / 800 575 / 575 Output Total 475 / 475 575 / 575 Balance 325 / 325 0 / 0 Weight 250 lb 8 oz Intake: Oral 800 / 800 575 / 575 Output: Void Amount 475 / 475 575 / 575 Other: Meal Lunch Percent of Meal Consumed 100% Incision: Yes healing Incision clean and dry: Yes Dressing: Yes clean, Yes dry, Yes intact Weight bearing status: full Neurological exam IM: Yes alert, Yes normal gait, Yes oriented X3, Yes motor sensory intact, Yes neurovascular intact Extremities exam IM: No calf tenderness, Yes Foot pink and warm, Yes neurovascular intact - Labs CBC & BMP: 03/08/17 04:43 03/02/17 15:00 Labs: Orthopedic Labs 03/02/17 15:00 PT 13.5 INR 1.0 03/09/17 03/08/17 03/02/17 05:35 04:43 15:01 Hgb Pending 10.5 L 14.6 Hct Pending 30.0 L 42.2 Assessment and Plan (1) S/P total knee arthroplasty pod 2 s/p tka wbat pain control dvt prophylaxis d/c planning Status: Acute Qualifiers:
[2017-03-09] MEDS: ASPIRIN 325 MG ENTERIC COATED TABLET PO SCH (08:27)
[2017-03-09] MEDS: DOCUSATE SODIUM 100 MG CAPSULE PO SCH (08:27)
[2017-03-09] MEDS: MULTIVIT,THER IRON,CA,FA & MIN 1 TABLET PO SCH (08:27)
[2017-03-09] MEDS: LOSARTAN 50 MG TABLET PO SCH (08:28)
[2017-03-09] MEDS: HYDROCHLOROTHIAZIDE 12.5 MG CAPSULE PO SCH (08:28)
[2017-03-09] MEDS: FERROUS SULFATE 325 MG TABLET PO SCH (08:28)
== END 2017-03-09 09:45 | disposition home or self-care (01) | DRG 470 ==
LOC: MEDSUR 05:36
PROVIDERS: ADMIT Orthopaedic Surgery Sports Medicine; ATTEND Orthopaedic Surgery Sports Medicine